=== PATIENT | male | born 1970 | race African-American/Black ===

== ENCOUNTER 2021-12-20 14:27 | Inpatient (IN) | payer OTHER ==
[2021-12-20] MEDS ORDERED: MAGNESIUM CITRATE 300 ML BOTTLE PO PRN (15:25)
[2021-12-20] MEDS ORDERED: LOPERAMIDE HCL 2 MG CAPSULE PO PRN (15:25)
[2021-12-20] MEDS ORDERED: ONDANSETRON *ODT* 4 MG TABLET SL PRN (15:25)
[2021-12-20] MEDS ORDERED: BISMUTH SUBSALICYLATE 262 MG/15 ML BTL PO PRN (15:25)
[2021-12-20] MEDS ORDERED: NICOTINE 10 MG CARTRIDGE (INHALER) IH PRN (15:25)
[2021-12-20] MEDS ORDERED: ACETAMINOPHEN 325 MG TABLET (FP) PO PRN (15:25)
[2021-12-20] MEDS ORDERED: DICYCLOMINE HCL 10 MG CAPSULE PO PRN (15:25)
[2021-12-20] MEDS ORDERED: BENZOCAINE/MENTHOL (CHLORASEPTIC ) LOZENGE MM PRN (15:25)
[2021-12-20] MEDS ORDERED: MAGNESIUM HYDROX 2400MG/30ML ORAL SUSPENSION 30 ML CUP PO PRN (15:25)
[2021-12-20] MEDS ORDERED: MAG HYDROX/AL HYDROX/SIMETH 30 ML UNIT-DOSE CUP PO PRN (15:25)
[2021-12-20 16:08] VITALS: BMI 18.5
[2021-12-20] MEDS: hydrOXYzine PAMOATE 25 MG CAPSULE (FP) PO SCH ×2 (18:06→22:12)
[2021-12-20] MEDS: THIAMINE HCL 100 MG TABLET (FP) PO SCH (22:12)
[2021-12-20] MEDS: MELATONIN 5 MG TABLETS PO SCH (22:13)
[2021-12-21] MEDS: hydrOXYzine PAMOATE 25 MG CAPSULE (FP) PO SCH ×5 (07:36→23:09)
[2021-12-21] MEDS ORDERED: LORazepam 1 MG TABLET PO PRN (09:44)
[2021-12-21] MEDS: PRENATAL VITAMINS W/ FOLIC ACID TABLET (FP) PO SCH (10:34)
[2021-12-21] MEDS: IBUPROFEN 400 MG TABLET (FP) PO PRN ×2 (10:35→18:02)
[2021-12-21] MEDS ORDERED: LORazepam 2 MG TABLET PO PRN (11:00)
[2021-12-21 12:26] LABS: HEMATOCRIT 41.7 % (35.4-49); MCH 31.4 pg (25.7-33.7); MCHC 33.5 g/dl (32.0-35.9); MEAN CELL VOLUME 93.6 fl (80-96); MEAN PLT VOLUME 7.4 fl (7.5-11.1); PLATELET COUNT 238 10^3/uL (134-434); RBC 4.45 M/mm3 (4.00-5.60); RDW 13.8 % (11.9-15.9)
[2021-12-21 12:30] LABS: ALBUMIN 3.1 g/dl (3.4-5.0); BLOOD UREA NITROGEN 13.9 mg/dL (7-18)
[2021-12-21 12:31] LABS: CALCIUM 8.8 mg/dL (8.5-10.1)
[2021-12-21 12:33] LABS: CREATININE 1.1 mg/dL (0.55-1.3)
[2021-12-21 12:35] LABS: BILIRUBIN,TOTAL 0.4 mg/dL (0.2-1); TOT PROT 6.3 g/dl (6.4-8.2)
[2021-12-21] MEDS: MELATONIN 5 MG TABLETS PO SCH (23:08)
[2021-12-21] MEDS: THIAMINE HCL 100 MG TABLET (FP) PO SCH (23:09)
[2021-12-22] MEDS: LORazepam 1 MG TABLET PO SCH ×4 (05:18→22:42)
[2021-12-22] MEDS: IBUPROFEN 400 MG TABLET (FP) PO PRN ×2 (05:19→11:07)
[2021-12-22] MEDS: hydrOXYzine PAMOATE 25 MG CAPSULE (FP) PO SCH ×5 (05:22→22:42)
[2021-12-22] MEDS: PRENATAL VITAMINS W/ FOLIC ACID TABLET (FP) PO SCH (11:04)
[2021-12-22] MEDS: LIDOCAINE 5% TOPICAL PATCH TP SCH (11:42)
[2021-12-22] MEDS: LISINOPRIL 10 MG TABLET PO SCH ×2 (11:42→22:37)
[2021-12-22] MEDS: THIAMINE HCL 100 MG TABLET (FP) PO SCH (22:37)
[2021-12-22] MEDS: MELATONIN 5 MG TABLETS PO SCH (22:37)
[2021-12-22] MEDS: LIDOCAINE PATCH REMOVAL MC SCH (22:42)
[2021-12-23] MEDS: ACETAMINOPHEN 325 MG TABLET (FP) PO PRN (02:02)
[2021-12-23] MEDS: hydrOXYzine PAMOATE 25 MG CAPSULE (FP) PO SCH ×5 (05:32→23:40)
[2021-12-23] MEDS: LORazepam 0.5 MG TABLET PO SCH ×4 (05:36→23:39)
[2021-12-23] MEDS: METHOCARBAMOL 500 MG TABLET PO PRN (06:01)
[2021-12-23] MEDS: PRENATAL VITAMINS W/ FOLIC ACID TABLET (FP) PO SCH (10:21)
[2021-12-23] MEDS: LISINOPRIL 10 MG TABLET PO SCH ×2 (10:21→23:14)
[2021-12-23] MEDS: LIDOCAINE 5% TOPICAL PATCH TP SCH (11:12)
[2021-12-23] MEDS: LIDOCAINE PATCH REMOVAL MC SCH (23:39)
[2021-12-23] MEDS: MELATONIN 5 MG TABLETS PO SCH (23:39)
[2021-12-23] MEDS: THIAMINE HCL 100 MG TABLET (FP) PO SCH (23:40)
[2021-12-24] MEDS ORDERED: LORazepam 0.5 MG TABLET PO PRN
[2021-12-24] MEDS: METHOCARBAMOL 500 MG TABLET PO PRN (02:12)
[2021-12-24] MEDS: IBUPROFEN 400 MG TABLET (FP) PO PRN (02:12)
[2021-12-24] MEDS ORDERED: LORazepam 0.5 MG TABLET PO ONE ×2 (05:00→18:00)
[2021-12-24] MEDS: ACETAMINOPHEN 325 MG TABLET (FP) PO PRN (05:22)
[2021-12-24] MEDS: hydrOXYzine PAMOATE 25 MG CAPSULE (FP) PO SCH ×2 (05:22→09:53)
[2021-12-24] MEDS ORDERED: cloNIDine HCL 0.1 MG TABLET PO ONE (08:15)
[2021-12-24 09:28] VITALS: BP 116/82; PULSE 91; TEMP 98.1
[2021-12-24] MEDS: LIDOCAINE 5% TOPICAL PATCH TP SCH (09:52)
[2021-12-24] MEDS: LISINOPRIL 10 MG TABLET PO SCH (09:53)
[2021-12-24] MEDS: PRENATAL VITAMINS W/ FOLIC ACID TABLET (FP) PO SCH (09:53)
[2021-12-24] MEDS ORDERED: amLODIPine BESYLATE 5 MG TABLET (FP) PO SCH (10:00)
[2021-12-25] MEDS ORDERED: LORazepam 0.5 MG TABLET PO ONE (05:00)
== END 2021-12-24 09:18 | disposition other institution (70) | DRG 774 ==
LOC: YASAS 14:27 → Y3N 15:55 → Y6N 12-21 21:32
PROVIDERS: ADMIT Allergy & Immunology; ATTEND Allergy & Immunology
PROC: HZ2ZZZZ Detoxification Services for Substance Abuse Treatment (ICD-10-PCS; principal; 2021-12-20)
DX: F10.230 Alcohol dependence with withdrawal, uncomplicated (principal); F14.20 Cocaine dependence, uncomplicated; F12.20 Cannabis dependence, uncomplicated; F17.210 Nicotine dependence, cigarettes, uncomplicated; F31.9 Bipolar disorder, unspecified; I10 Essential (primary) hypertension; J45.909 Unspecified asthma, uncomplicated; M54.89 Other dorsalgia; Y04.2XXA Assault by strike against or bumped into by another person, initial encounter; Y92.238 Other place in hospital as the place of occurrence of the external cause; Z91.010 Allergy to peanuts; Z91.018 Allergy to other foods
CPT/HCPCS: 36415; 72100-TC-FY; 80053; 82962; 85027; 86593; 86780; C9803-CS; J0735; U0003; U0005

== ENCOUNTER 2023-03-18 11:09 | Inpatient (IN) | payer OTHER ==
[2023-03-18 11:37] VITALS: BMI 19.8
[2023-03-18] MEDS ORDERED: POLYETHYLENE GLYCOL (HEALTHYLAX) 3350 17 GM PACKET PO PRN (12:50)
[2023-03-18] MEDS ORDERED: BENZOCAINE/MENTHOL (CHLORASEPTIC ) LOZENGE MM PRN (12:50)
[2023-03-18] MEDS ORDERED: BISMUTH SUBSALICYLATE 262 MG/15 ML BTL PO PRN (12:50)
[2023-03-18] MEDS ORDERED: NICOTINE POLACRILEX 2 MG GUM BUC PRN (12:50)
[2023-03-18] MEDS ORDERED: LOPERAMIDE HCL 2 MG CAPSULE PO PRN (12:50)
[2023-03-18] MEDS ORDERED: IBUPROFEN 600 MG TABLET (FP) PO PRN (12:50)
[2023-03-18] MEDS ORDERED: ACETAMINOPHEN 325 MG TABLET (FP) PO PRN (12:50)
[2023-03-18] MEDS ORDERED: MAGNESIUM HYDROX 2400MG/30ML ORAL SUSPENSION 30 ML CUP PO PRN (12:50)
[2023-03-18] MEDS ORDERED: NALOXONE HCL 0.4 MG/ML VIAL IM PRN (12:50)
[2023-03-18] MEDS ORDERED: guaiFENesin 600 MG TABLET.ER (FP) PO PRN (12:50)
[2023-03-18] MEDS ORDERED: BENZONATATE 200 MG CAPSULE PO PRN (12:50)
[2023-03-18] MEDS ORDERED: ONDANSETRON *ODT* 4 MG TABLET SL PRN (12:50)
[2023-03-18] MEDS ORDERED: MAG HYDROX/AL HYDROX/SIMETH 30 ML UNIT-DOSE CUP PO PRN (12:50)
[2023-03-18] MEDS ORDERED: NALOXONE HCL (KLOXXADO) 8 MG SPRAY NS PRN (12:50)
[2023-03-18] MEDS ORDERED: DICYCLOMINE HCL 10 MG CAPSULE PO PRN (12:50)
[2023-03-18] MEDS ORDERED: IBUPROFEN 400 MG TABLET (FP) PO PRN (12:50)
[2023-03-18] MEDS ORDERED: chlordiazePOXIDE HCL 25 MG CAPSULE PO PRN (12:54)
[2023-03-18] MEDS: amLODIPine BESYLATE 5 MG TABLET (FP) PO SCH (15:11)
[2023-03-18] MEDS: chlordiazePOXIDE HCL 25 MG CAPSULE PO SCH ×2 (17:36→22:18)
[2023-03-18] MEDS ORDERED: LISINOPRIL 10 MG TABLET PO SCH (22:00)
[2023-03-18] MEDS: LISINOPRIL 10 MG TABLET PO SCH (22:17)
[2023-03-18] MEDS: MELATONIN 5 MG TABLETS PO SCH (22:17)
[2023-03-18] MEDS: THIAMINE HCL 100 MG TABLET (FP) PO SCH (22:17)
[2023-03-19] MEDS: chlordiazePOXIDE HCL 25 MG CAPSULE PO SCH ×2 (05:55→10:37)
[2023-03-19] MEDS: amLODIPine BESYLATE 5 MG TABLET (FP) PO SCH ×2 (10:36→10:55)
[2023-03-19] MEDS: PRENATAL VITAMINS W/ FOLIC ACID TABLET (FP) PO SCH ×2 (10:36→10:55)
[2023-03-19] MEDS: NICOTINE 14 MG/24 HOURS TOPICAL PATCH TD SCH (10:36)
[2023-03-19] MEDS: LISINOPRIL 10 MG TABLET PO SCH ×3 (10:37→22:59)
[2023-03-19] MEDS ORDERED: LORazepam 1 MG TABLET PO PRN (10:38)
[2023-03-19 11:32] LABS: HEMOGLOBIN 15.6 GM/dL (11.7-16.9); MCH 30.1 pg (25.7-33.7); MCHC 33.2 g/dl (32.0-35.9); MEAN CELL VOLUME 90.5 fl (80-96); MEAN PLT VOLUME 7.5 fl (7.5-11.1); PLATELET COUNT 255 10^3/uL (134-434); RBC 5.19 M/mm3 (4.00-5.60); RDW 14.3 % (11.9-15.9); WHITE BLOOD COUNT 5.8 K/mm3 (4.0-10.0)
[2023-03-19] MEDS ORDERED: PNEUMOC 20-VAL CONJ-DIP CRM/PF 0.5 ML SYRINGE IM ONE (12:01)
[2023-03-19 12:18] LABS: POTASSIUM 4.5 mmol/L (3.5-5.1)
[2023-03-19 12:27] LABS: ALBUMIN 3.6 g/dl (3.4-5.0); CALCIUM 9.4 mg/dL (8.5-10.1)
[2023-03-19 12:28] LABS: BLOOD UREA NITROGEN 12.6 mg/dL (7-18)
[2023-03-19 12:30] LABS: CREATININE 1.2 mg/dL (0.55-1.3)
[2023-03-19 12:32] LABS: BILIRUBIN,TOTAL 0.3 mg/dL (0.2-1); TOT PROT 7.2 g/dl (6.4-8.2)
[2023-03-19] MEDS: METHOCARBAMOL 500 MG TABLET PO PRN (15:44)
[2023-03-19] MEDS: LORazepam 1 MG TABLET PO SCH ×2 (17:41→23:04)
[2023-03-19] MEDS: THIAMINE HCL 100 MG TABLET (FP) PO SCH (22:59)
[2023-03-19] MEDS: MELATONIN 5 MG TABLETS PO SCH (23:04)
[2023-03-20] MEDS ORDERED: chlordiazePOXIDE HCL 25 MG CAPSULE PO SCH (05:00)
[2023-03-20] MEDS: LORazepam 1 MG TABLET PO SCH ×4 (05:56→22:29)
[2023-03-20] MEDS: PRENATAL VITAMINS W/ FOLIC ACID TABLET (FP) PO SCH (10:53)
[2023-03-20] MEDS: NICOTINE 14 MG/24 HOURS TOPICAL PATCH TD SCH (10:53)
[2023-03-20] MEDS: amLODIPine BESYLATE 5 MG TABLET (FP) PO SCH (10:53)
[2023-03-20] MEDS: LISINOPRIL 10 MG TABLET PO SCH ×2 (10:53→22:29)
[2023-03-20] MEDS: METHOCARBAMOL 500 MG TABLET PO PRN (17:19)
[2023-03-20] MEDS: THIAMINE HCL 100 MG TABLET (FP) PO SCH (22:29)
[2023-03-20] MEDS: MELATONIN 5 MG TABLETS PO SCH (22:29)
[2023-03-21] MEDS ORDERED: chlordiazePOXIDE HCL 10 MG CAPSULE PO PRN
[2023-03-21] MEDS ORDERED: chlordiazePOXIDE HCL 10 MG CAPSULE PO SCH (05:00)
[2023-03-21] MEDS: LORazepam 1 MG TABLET PO SCH ×4 (05:29→22:29)
[2023-03-21] MEDS: LISINOPRIL 10 MG TABLET PO SCH ×2 (10:21→22:29)
[2023-03-21] MEDS: amLODIPine BESYLATE 5 MG TABLET (FP) PO SCH (10:21)
[2023-03-21] MEDS: NICOTINE 14 MG/24 HOURS TOPICAL PATCH TD SCH (10:24)
[2023-03-21] MEDS: PRENATAL VITAMINS W/ FOLIC ACID TABLET (FP) PO SCH (10:24)
[2023-03-21] MEDS: MELATONIN 5 MG TABLETS PO SCH (22:29)
[2023-03-21] MEDS: THIAMINE HCL 100 MG TABLET (FP) PO SCH (22:29)
[2023-03-22] MEDS ORDERED: LORazepam 0.5 MG TABLET PO PRN
[2023-03-22] MEDS ORDERED: chlordiazePOXIDE HCL 10 MG CAPSULE PO SCH (05:00)
[2023-03-22] MEDS: LORazepam 0.5 MG TABLET PO SCH ×4 (06:00→22:43)
[2023-03-22] MEDS: METHOCARBAMOL 500 MG TABLET PO PRN (11:04)
[2023-03-22] MEDS: amLODIPine BESYLATE 5 MG TABLET (FP) PO SCH (11:04)
[2023-03-22] MEDS: LISINOPRIL 10 MG TABLET PO SCH ×2 (11:04→22:42)
[2023-03-22] MEDS: PRENATAL VITAMINS W/ FOLIC ACID TABLET (FP) PO SCH (11:05)
[2023-03-22] MEDS: NICOTINE 14 MG/24 HOURS TOPICAL PATCH TD SCH (11:05)
[2023-03-22] MEDS: MELATONIN 5 MG TABLETS PO SCH (22:42)
[2023-03-22] MEDS: THIAMINE HCL 100 MG TABLET (FP) PO SCH (22:42)
[2023-03-23] MEDS ORDERED: LORazepam 0.5 MG TABLET PO ONE (05:00)
[2023-03-23] MEDS ORDERED: chlordiazePOXIDE HCL 10 MG CAPSULE PO ONE (05:00)
[2023-03-23 09:51] VITALS: BP 129/84; PULSE 80; RESP 18; TEMP 97.5
[2023-03-23] MEDS: PRENATAL VITAMINS W/ FOLIC ACID TABLET (FP) PO SCH (10:45)
[2023-03-23] MEDS: LISINOPRIL 10 MG TABLET PO SCH (10:45)
[2023-03-23] MEDS: NICOTINE 14 MG/24 HOURS TOPICAL PATCH TD SCH (10:46)
[2023-03-23] MEDS: amLODIPine BESYLATE 5 MG TABLET (FP) PO SCH (10:46)
== END 2023-03-23 11:39 | disposition home or self-care (01) | DRG 774 ==
LOC: YASAS 11:09 → Y6N 14:05
PROVIDERS: ADMIT Allergy & Immunology; ATTEND Surgery
PROC: HZ2ZZZZ Detoxification Services for Substance Abuse Treatment (ICD-10-PCS; principal; 2023-03-18)
DX: F10.230 Alcohol dependence with withdrawal, uncomplicated (principal); F14.20 Cocaine dependence, uncomplicated; F17.210 Nicotine dependence, cigarettes, uncomplicated; F31.9 Bipolar disorder, unspecified; F41.9 Anxiety disorder, unspecified; I10 Essential (primary) hypertension; J45.20 Mild intermittent asthma, uncomplicated; Z86.59 Personal history of other mental and behavioral disorders; Z86.19 Personal history of other infectious and parasitic diseases
CPT/HCPCS: 36415; 80053; 85027; 86593; 86780; 87635; 90677; 93005; 93010

== ENCOUNTER 2024-10-19 12:36 | Inpatient (IN) | payer OTHER ==
[2024-10-19 13:09] VITALS: BMI 20.9
[2024-10-19] MEDS ORDERED: BENZONATATE 200 MG CAPSULE PO PRN (13:41)
[2024-10-19] MEDS ORDERED: LOPERAMIDE HCL 2 MG CAPSULE PO PRN (13:41)
[2024-10-19] MEDS ORDERED: MAG HYDROX/AL HYDROX/SIMETH 30 ML UNIT-DOSE CUP PO PRN (13:41)
[2024-10-19] MEDS ORDERED: NICOTINE POLACRILEX 2 MG GUM BUC PRN (13:41)
[2024-10-19] MEDS ORDERED: BENZOCAINE/MENTHOL (CHLORASEPTIC ) LOZENGE MM PRN (13:41)
[2024-10-19] MEDS ORDERED: MAGNESIUM HYDROX 2400MG/30ML ORAL SUSPENSION 30 ML CUP PO PRN (13:41)
[2024-10-19] MEDS ORDERED: POLYETHYLENE GLYCOL (HEALTHYLAX) 3350 17 GM PACKET PO PRN (13:41)
[2024-10-19] MEDS ORDERED: NICOTINE POLACRILEX 2 MG LOZENGE BC PRN (13:41)
[2024-10-19] MEDS ORDERED: NALOXONE (NARCAN) HCL 4 MG/0.1 ML SPRAY NS PRN (13:41)
[2024-10-19] MEDS ORDERED: IBUPROFEN 400 MG TABLET (FP) PO PRN (13:41)
[2024-10-19] MEDS ORDERED: guaiFENesin 600 MG TABLET.ER (FP) PO PRN (13:41)
[2024-10-19] MEDS: THIAMINE 100 MG TABLET PO SCH (22:42)
[2024-10-19] MEDS: MELATONIN 5 MG TABLETS PO SCH (22:42)
[2024-10-20] MEDS: PRENATAL VITAMINS W/ FOLIC ACID TABLET (FP) PO SCH (09:16)
[2024-10-20 11:50] LABS: HEMATOCRIT 43.3 % (35.4-49); HEMOGLOBIN 14.1 GM/dL (11.7-16.9); MCH 29.2 pg (25.7-33.7); MCHC 32.6 g/dl (32.0-35.9); MEAN CELL VOLUME 89.7 fl (80-96); MEAN PLT VOLUME 7.7 fl (7.5-11.1); PLATELET COUNT 219 10^3/uL (134-434); RBC 4.83 M/mm3 (4.00-5.60); WHITE BLOOD COUNT 4.8 K/mm3 (4.0-10.0)
[2024-10-20 11:59] LABS: POTASSIUM 4.4 mmol/L (3.5-5.1)
[2024-10-20 12:06] LABS: CALCIUM 9.3 mg/dL (8.5-10.1)
[2024-10-20 12:07] LABS: ALBUMIN 3.3 g/dl (3.4-5.0); BLOOD UREA NITROGEN 15.6 mg/dL (7-18)
[2024-10-20 12:10] LABS: CREATININE 1.1 mg/dL (0.55-1.3)
[2024-10-20 12:11] LABS: TOT PROT 6.6 g/dl (6.4-8.2)
[2024-10-20 12:13] LABS: BILIRUBIN,TOTAL 0.5 mg/dL (0.2-1)
[2024-10-20] MEDS: IBUPROFEN 600 MG TABLET (FP) PO PRN (21:12)
[2024-10-22] MEDS: ACETAMINOPHEN 325 MG TABLET (FP) PO PRN (10:13)
[2024-10-22] MEDS: SERTRALINE HCL 50 MG TABLET (FP) PO SCH (13:17)
[2024-10-22] MEDS: risperiDONE 2 MG TABLET PO SCH (13:17)
[2024-10-22] MEDS: SERTRALINE HCL 25 MG TABLET (FP) PO SCH (13:18)
[2024-10-22] MEDS: GABAPENTIN 300 MG CAPSULE PO ONE (13:18)
[2024-10-22] MEDS: GABAPENTIN 300 MG CAPSULE PO SCH (21:48)
[2024-10-25 06:01] VITALS: BP 128/65; PULSE 102; RESP 17; TEMP 96.9
== END 2024-10-25 10:00 | disposition home or self-care (01) | DRG 772 ==
LOC: YASAS 12:36 → Y3NR 16:42 → Y3W 10-20 10:40
PROVIDERS: ADMIT Psychiatry & Neurology Pain Medicine; ATTEND Psychiatry & Neurology Pain Medicine
PROC: HZ42ZZZ Group Counseling for Substance Abuse Treatment, Cognitive-Behavioral (ICD-10-PCS; principal; 2024-10-19)
DX: F14.10 Cocaine abuse, uncomplicated (principal); F10.20 Alcohol dependence, uncomplicated; F17.210 Nicotine dependence, cigarettes, uncomplicated; F19.259 Other psychoactive substance dependence with psychoactive substance-induced psychotic disorder, unspecified; F31.9 Bipolar disorder, unspecified; F25.9 Schizoaffective disorder, unspecified; I10 Essential (primary) hypertension; J45.20 Mild intermittent asthma, uncomplicated; M25.562 Pain in left knee; G89.29 Other chronic pain; Z99.89 Dependence on other enabling machines and devices; Z20.2 Contact with and (suspected) exposure to infections with a predominantly sexual mode of transmission; Z56.0 Unemployment, unspecified; Z59.00 Homelessness unspecified
CPT/HCPCS: 36415; 80053; 80305; 80307; 85027; 86593; 86780; 87811; 93005; 93010